=== PATIENT | female | born 1990 | race Asian ===

== ENCOUNTER 2022-02-04 15:21 | Outpatient (CLI) | payer OTHER ==
[~2022-02-04] VITALS: Wt 101.8 kg
--- NOTE | 2022-02-04 15:25 | NUR ---
1525- Pt arrives on unit with complaints of "not feeling well", baby not moving as much as normal, and she took her BP at work and it was 150's/90's. Pt into bathroom to change into gown and provide urine sample. 1536- Pt into bed, EFM and TOCO on and tracing. VSS. Pt denies SIERRA, blurry vision, state she has swelling off and on but very minimal noted currently. Assessment completed.
[2022-02-04 15:51] LABS: COLLECTION METHOD CLEAN CATCH
[2022-02-04] MEDS ORDERED: PRENATAL (15:53)
[2022-02-04] MEDS ORDERED: BUSPAR10 MG PO (15:54)
[2022-02-04] MEDS ORDERED: ASPIRIN 81M81 MG/TA2 (15:54)
[2022-02-04 15:56] LABS: BASO % 0.2 % (0.0-2.0); EOS % 0.1 % (0.0-4.0); GRAN # 7.1 K/mm3 (1.4-6.5); GRAN % 76.5 % (42.2-75.2); HEMOGLOBIN 10.8 g/dl (12.5-16.0); LYMPH # 1.6 K/mm3 (1.2-3.4); LYMPH % 16.8 % (20.0-51.0); MEAN CELL VOLUME 86 fl (80.0-100.0); MEAN CORPUSCULAR HEMOGLOBIN 28 pg (27-31); MEAN CORPUSCULAR HGB CONC 33 g/dl (33.0-37.0); MEAN PLATELET VOLUME 9.5 fl (7.4-10.4); MONO # 0.6 K/mm3 (0.1-0.6); MONO % 6.1 % (1.7-9.3); PLATELET COUNT 328 K/mm3 (130-400); RED BLOOD COUNT 3.82 M/mm3 (4.10-5.30); REDCELL DISTRIBUTION WIDTH-CV 14.5 % (11.5-14.5)
[2022-02-04 16:00] VITALS: BP 121/85; PULSE 108
[2022-02-04 16:00] LABS: MUCOUS Present (NOT PRESENT); PH 7 (5-8); SQUAMOUS EPITHELIAL 0-2 /hpf (0-10); URINE APPEARANCE Clear (CLEAR/HAZY); URINE BACTERIA Rare /hpf (NONE SEEN); URINE BILIRUBIN Negative (NEGATIVE); URINE BLOOD Negative (NEGATIVE); URINE COLOR Yellow (YELLOW); URINE GLUCOSE Negative (NEGATIVE); URINE KETONE Negative (NEGATIVE); URINE LEUKOCYTE ESTERASE Negative (NEGATIVE); URINE NITRATE Negative (NEGATIVE); URINE PROTEIN(semi-quant) Negative (NEGATIVE); URINE RBC 0-2 /hpf (0-2); URINE UROBILINOGEN Negative (NEGATIVE); URINE WBC 0-2 /hpf (0-2)
[2022-02-04 16:01] LABS: HEMATOCRIT 32.9 % (37.0-47.0)
[2022-02-04 16:10] LABS: ALBUMIN 2.7 gm/dL (3.5-5.0); BILIRUBIN,TOTAL 0.1 mg/dL (0.2-1.2); CALCIUM 9.2 mg/dL (8.4-10.2); CREATININE, serum 0.73 mg/dL (0.57-1.11)
[2022-02-04 16:30] VITALS: BP 115/76; PULSE 114
--- NOTE | 2022-02-04 16:35 | NUR ---
1635-SVE by JENNIFER Luis 0-/-3. Updated Dr. Mosher who is on unit. Orders to discharge patient home. 1643-Patient off EFM. Reviewed discharge instructions. Denies questions. 1653-Ambulatory off unit with spouse.
[2022-02-04 16:43] VITALS: BP 137/87; PULSE 99
== END 2022-02-04 16:53 | disposition home or self-care (01) ==
LOC: LDRO 15:21 → LDR 16:00 → LDRO 16:53
PROVIDERS: Obstetrics & Gynecology
DX: O13.9 Gestational [pregnancy-induced] hypertension without significant proteinuria, unspecified trimester (principal); Z3A.00 Weeks of gestation of pregnancy not specified

== ENCOUNTER 2022-02-23 09:25 | Inpatient (IN) | payer OTHER ==
[2022-02-23] VITALS (20 sets, daily range): BP systolic 113–160; BP diastolic 51–98; PULSE 92–135; TEMP 98–98.4
[~2022-02-23] VITALS: Ht 160 cm; Wt 107.7 kg
[~2022-02-23 09:25] MED LIST: ASPIRIN 81M81 MG/TA2; BUSPAR10 MG PO; PRENATAL
--- NOTE | 2022-02-23 09:35 | NUR ---
Patient ambulatory to LR4 with significant other, changed into gown, FHR/TOCO monitors placed and explained. Patient states she has been maggy since last night but have been regular since 0400. Patient denies any leaking of fluid, vaginal bleeding, or decreased movement. Plan of care discussed. SVE-2 and bulgy bag noted. Assessment completed. Dr. Gross called and notified-see physician notification. Patient updated on plan of care. Denita Benítez RN started IV in left hand, blood obtained and to lab, flushed. 1100: SVE-1 Dr. Gross called and updated-see physician notification. Orders to prep for csection. Patient prepped for csection and plan of care updated. 1035: Patient off monitors and ambulates to OR
[2022-02-23] MEDS ORDERED: TUMS500 MG (09:50)
--- NOTE | 2022-02-23 10:00 | NUR ---
Patient states that she is scheduled . Patient states "I have been planning to just have an elective csection due to my anxiety and I like to have a plan, Dr. Gross is aware and we have talked about it at appointment", this RN educating patient. Patient still wanting elective csection at this time.
[2022-02-23 10:37] LABS: BASO % 0.2 % (0.0-2.0); EOS % 0.2 % (0.0-4.0); GRAN # 8.2 K/mm3 (1.4-6.5); GRAN % 78.7 % (42.2-75.2); LYMPH # 1.5 K/mm3 (1.2-3.4); LYMPH % 14.1 % (20.0-51.0); MEAN CELL VOLUME 86 fl (80.0-100.0); MEAN CORPUSCULAR HEMOGLOBIN 28 pg (27-31); MEAN CORPUSCULAR HGB CONC 33 g/dl (33.0-37.0); MEAN PLATELET VOLUME 9.8 fl (7.4-10.4); MONO # 0.7 K/mm3 (0.1-0.6); MONO % 6.2 % (1.7-9.3); PLATELET COUNT 330 K/mm3 (130-400); RED BLOOD COUNT 4.24 M/mm3 (4.10-5.30); REDCELL DISTRIBUTION WIDTH-CV 15.3 % (11.5-14.5)
[2022-02-23 10:42] LABS: HEMATOCRIT 36.5 % (37.0-47.0)
[2022-02-24 00:14] VITALS: BP 122/67; PULSE 104; TEMP 98.2
[2022-02-24 03:44] VITALS: BP 127/75; PULSE 104; TEMP 98.2
[2022-02-24 08:05] VITALS: BP 122/73; PULSE 90; TEMP 97.8
--- NOTE | 2022-02-24 11:01 | NUR ---
Initial visit; Parents thanked [employer] Level [employer] Representative for offering congratulations and God's blessings for the of their son. Entry Level Marketing Representative thanked family for choosing our hospital.
[2022-02-24 12:05] VITALS: BP 126/68; PULSE 82; TEMP 98.7
[2022-02-24 15:44] VITALS: BP 124/86; PULSE 90; TEMP 98.6
[2022-02-24 19:15] VITALS: BP 131/58; PULSE 108; TEMP 97.9
[2022-02-25 07:30] VITALS: BP 122/79; PULSE 102; TEMP 98.9
[2022-02-25] MEDS ORDERED: IBU600 MG PO (11:24)
[2022-02-25] MEDS ORDERED: ROXICODONE 55 MG/TAB PO (11:24)
== END 2022-02-25 11:47 | disposition home or self-care (01) | DRG 788 ==
LOC: LDRO 09:25 → LDR 10:00 → OB 12:25
PROVIDERS: ADMIT Obstetrics & Gynecology
PROC: 10D00Z1 Extraction of Products of Conception, Low, Open Approach (ICD-10-PCS; principal; 2022-02-23)
DX: O24.420 Gestational diabetes mellitus in childbirth, diet controlled (principal); O99.824 Streptococcus B carrier state complicating childbirth; O99.02 Anemia complicating childbirth; D64.9 Anemia, unspecified; O99.284 Endocrine, nutritional and metabolic diseases complicating childbirth; E06.3 Autoimmune thyroiditis; O99.214 Obesity complicating childbirth; O99.344 Other mental disorders complicating childbirth; F32.A Depression, unspecified; F90.9 Attention-deficit hyperactivity disorder, unspecified type; F43.10 Post-traumatic stress disorder, unspecified; Z3A.38 38 weeks gestation of pregnancy; Z37.0 Single live birth; Z86.16 Personal history of COVID-19
CPT/HCPCS: J0171; J0690; J1885; J2175; J2370; J2405; J2590; J7120